=== PATIENT | male | born 1975 | race African-American/Black ===

== ENCOUNTER 2016-09-07 19:19 | Emergency (ER) | payer SELFPAY ==
[~2016-09-07] VITALS: Ht 175.3 cm; Wt 133.4 kg
--- NOTE | 2016-09-07 20:03 | PHYS DOC ---
Past Medical History Past Medical History: Hypertension Additional Past Medical Histor: chronic back pain with 3 bulging disks diagnosed by MRI 3 years ago Past Surgical History: Other Additional Past Surgical Histo: RIGHT LEG Alcohol Use: None Drug Use: None Adult General Chief Complaint Chief Complaint: LOWER BACK PAIN OR INJURY [facility] HPI Patient is a 40 year old male who presents with left thigh pain and left lateral lumbar back pain that's been gradual in onset and worse over the past couple days. He's had a flareup in the past one week and was seen at [facility] no imaging was done but he was given Lortabs and muscle relaxants with some improvement but the pains now progressed to some left thigh pain. Denies any saddle paresthesias or difficulties urinating or defecating. Patient is still able to walk. Denies any recent trauma. In 2012 he did have an MRI of his lumbar spine which he says showed 3 bulging disks in the lumbar spine but he lost his insurance shortly thereafter. He is also received epidural steroid injections in the remote past as well. Review of Systems Review of Systems Constitutional: Denies fever or chills [] Eyes: Denies change in visual acuity, redness, or eye pain [] HENT: Denies nasal congestion or sore throat [] Respiratory: Denies cough or shortness of breath [] Cardiovascular: No additional information not addressed in HPI [] GI: Denies abdominal pain, nausea, vomiting, bloody stools or diarrhea [] : Denies dysuria or hematuria [] Musculoskeletal: Denies back pain or joint pain [] Integument: Denies rash or skin lesions [] Neurologic: Denies headache, focal weakness or sensory changes [] Endocrine: Denies polyuria or polydipsia [] Current Medications Current Medications Current Medications Medications (Trade) Dose Ordered Sig/[facility] Start Time Stop Time Status Last Admin Dose Admin Ketorolac Tromethamine (Toradol Im) 30 mg 1X ONCE 09/07/16 20:15 09/07/16 20:16 DC 09/07/16 20:05 30 MG Allergies Allergies Allergies Coded Allergies Type Severity Reaction Last Updated Verified No Known Drug Allergies 08/14/14 No Physical Exam Physical Exam Constitutional: Well developed, well nourished, no acute distress, non-toxic appearance. [] HENT: Normocephalic, atraumatic, bilateral external ears normal, oropharynx moist, no oral exudates, nose normal. [] Eyes: PERRLA, EOMI, conjunctiva normal, no discharge. [] Neck: Normal range of motion, no tenderness, supple, no stridor. [] Cardiovascular:Heart rate regular rhythm, no murmur [] Lungs & Thorax: Bilateral breath sounds clear to auscultation [] Abdomen: Bowel sounds normal, soft, no tenderness, no masses, no pulsatile masses. [] Skin: Warm, dry, no erythema, no rash. [] Back: No tenderness, no CVA tenderness. Nontender midline lumbar spine mild tenderness over the left SI joint and buttocks area [] Extremities: No tenderness, no cyanosis, no clubbing, ROM intact, no edema. [] Neurologic: Alert and oriented X 3, normal motor function, normal sensory function, no focal deficits noted. 2+ bilateral and equal patellar reflexes normal motor strength in the lower extremities with extension of the knee plantarflexion of the ankle and dorsiflexion of the great toe. 2+ pulses in the foot and ankle no obvious swelling to the left thigh [] Psychologic: Affect normal, judgement normal, mood normal. [] All review of systems negative except as mentioned in history of present illness Current Patient Data Vital Signs Vital Signs Date Time Temp Pulse Resp B/P (MAP) Pulse Ox O2 Delivery O2 Flow Rate FiO2 09/07/16 21:32 70 18 167/101 (123) 95 Room Air 09/07/16 19:28 98.6 98.6 EKG EKG [] Radiology/Procedures Radiology/Procedures X-ray left femur: X-ray of femur was negative for any fracture my interpretation ] Course & Med Decision Making Course & Med Decision Making Pertinent Labs and Imaging studies reviewed. (See chart for details) [Patient will be dismissed home and advised follow-up with the primary care physician for management of his chronic pain and is given a red flag warning signs to return for his visit relates to his back pain and sciatica.] Dragon Disclaimer Dragon Disclaimer This electronic medical record was generated, in whole or in part, using a voice recognition dictation system. Departure Departure Impression: Primary Impression: Left lumbar radiculopathy Disposition: HOME, SELF-CARE Condition: STABLE Referrals: NO PCP (PCP) Scripts Oxycodone/Apap 5-325 (PERCOCET 5-325 MG TABLET) 1 Each Tablet 1 TAB PO PRN Q6HRS for PAIN, #10 TAB 0 Refills Prov: ALEJO LOPEZ MD 09/07/16 ALEJO LOPEZ MD September 07, 2016 20:03
[2016-09-07] MEDS ORDERED: KETOROLAC TROMETHAMINE 60 MG/2 ML INJ. IM ONE (20:15)
[2016-09-07 21:32] VITALS: BP 167/101
[2016-09-07] MEDS ORDERED: OXYC-323 PO (21:49)
--- NOTE | 2016-09-08 07:47 | RAD ---
Indication pain. No history of trauma. AP and lateral views of the left femur were obtained. No bony abnormality is seen
== END 2016-09-07 21:58 | disposition home or self-care (01) ==
LOC: ER 19:19
DX: M54.16 Radiculopathy, lumbar region (principal); I10 Essential (primary) hypertension; G89.29 Other chronic pain
CPT/HCPCS: 73552; 96372; 99284; J1885

== ENCOUNTER 2017-02-07 08:50 | Emergency (ER) | payer SELFPAY ==
[~2017-02-07] VITALS: Ht 172.7 cm; Wt 117.9 kg
[~2017-02-07 08:50] MED LIST: OXYC-323 PO
[2017-02-07 09:09] VITALS: BP 221/128
[2017-02-07] MEDS ORDERED: AMOX875T PO (09:26)
[2017-02-07] MEDS ORDERED: TRAM-48 PO (09:26)
--- NOTE | 2017-02-07 09:27 | PHYS DOC ---
Past Medical History Past Medical History: Hypertension Additional Past Medical Histor: chronic back pain with 3 bulging disks diagnosed by MRI 3 years ago Past Surgical History: Other Additional Past Surgical Histo: RIGHT LEG Alcohol Use: None Drug Use: None Adult General Chief Complaint Chief Complaint: DENTAL PROBLEM HPI HPI Patient is a 41 year old male who presents with a right upper gum dental pain and swelling that began this morning. Patient denies any fever. He states he does not have a dentist. Review of Systems Review of Systems Constitutional: Denies fever or chills [] Eyes: Denies change in visual acuity, redness, or eye pain [] HENT: right upper gum dental pain Musculoskeletal: Denies back pain or joint pain [] Integument: Denies rash or skin lesions [] Neurologic: Denies headache, focal weakness or sensory changes [] Allergies Allergies Allergies Coded Allergies Type Severity Reaction Last Updated Verified No Known Drug Allergies 08/14/14 No Physical Exam Physical Exam Constitutional: Well developed, well nourished, no acute distress, non-toxic appearance. [] HENT: Normocephalic, atraumatic, bilateral external ears normal, oropharynx moist, no oral exudates, nose normal. [] Right upper cheek with mild facial swelling, Missing most teeth. Right molar is decayed. infected dental carriers noted on the remaining few teeth. Skin: Warm, dry, no erythema, no rash. [] Back: No tenderness, no CVA tenderness. [] Extremities: No tenderness, no cyanosis, no clubbing, ROM intact, no edema. [] Neurologic: Alert and oriented X 3, normal motor function, normal sensory function, no focal deficits noted. [] Psychologic: Affect normal, judgement normal, mood normal. [] Current Patient Data Vital Signs Vital Signs Date Time Temp Pulse Resp B/P (MAP) Pulse Ox O2 Delivery O2 Flow Rate FiO2 02/07/17 09:09 98.4 78 18 221/128 (159) 95 Room Air 98.4 EKG EKG [] Radiology/Procedures Radiology/Procedures [] Course & Med Decision Making Course & Med Decision Making Pertinent Labs and Imaging studies reviewed. (See chart for details) Patient has dental abscess. We'll discharge with amoxicillin and Ultram. Follow- up with a dentist. I did provide him dental list. Dragon Disclaimer Dragon Disclaimer This electronic medical record was generated, in whole or in part, using a voice recognition dictation system. Departure Departure Impression: Primary Impression: Dental abscess Additional Impression: Dentalgia Disposition: 01 HOME, SELF-CARE Condition: STABLE Referrals: NO PCP (PCP) follow up with a dentist from the list provided in one week Patient Instructions: Dental Abscess, Dental Caries Additional Instructions: You were seen for dental abscess. Ensure you take your antibiotics to completion. Follow-up with a dentist as soon as possible from the list provided. Scripts Tramadol Hcl (ULTRAM) 50 Mg Tablet 1 TAB PO Q6HRS, #30 TAB Prov: LEIGH ANN SUMMERS APRN 02/07/17 Amoxicillin (AMOXICILLIN) 875 Mg Tablet 1 TAB PO BID, #20 TAB Prov: LEIGH ANN SUMMERS APRN 02/07/17 Problem Qualifiers LEIGH ANN SUMMERS APRN Feb 07, 2017 09:27
== END 2017-02-07 09:32 | disposition home or self-care (01) ==
LOC: ER 08:50
DX: K04.7 Periapical abscess without sinus (principal); I10 Essential (primary) hypertension; G89.29 Other chronic pain
CPT/HCPCS: 99283